=== PATIENT | female | born 1985 | race Caucasian/White ===

== ENCOUNTER 2017-03-31 17:50 | Outpatient (CLI) | payer MEDICAID ==
--- NOTE | 2017-04-14 15:53 | ER ---
ADMIT: 03/31/2017 RM/LOC: [address] [facility] MR#: [id number] [facility] [id number] LAYA MORTON [address] [place] [address] Emergency Room Report SEX: F AGE: 31 : 1985 DATE: 03/31/2017 A 32-year-old female, who comes to the Emergency Department with complaints of not sleeping at night. Of note, she drinks pop and tea heavily throughout the day. See T-sheet for history and physical. The patient is diagnosed with insomnia. Instructed to stop caffeinated beverages and foods after 4:00 p.m. and avoid using her smartphone or tablet while in bed. DIAGNOSIS: Insomnia. Andrea Deal MD/ saulo JOB #: [id number] CC: Elzbieta Silva MD, Attending Physician Elzbieta Silva MD, Family Physician
== END 2017-03-31 20:00 | disposition home or self-care (01) ==
LOC: BC 17:50 → 2LDRP 17:50 → BC 20:00
DX: O42.913 Preterm premature rupture of membranes, unspecified as to length of time between rupture and onset of labor, third trimester (principal); F41.9 Anxiety disorder, unspecified